=== PATIENT | female | born 1965 | race Caucasian/White ===

== ENCOUNTER 2018-06-02 12:59 | Inpatient (IN) ==
[2018-06-02] MEDS ORDERED: NS 1,000 ML IV ONE ×3 (13:38→17:51)
[2018-06-02 14:20] LABS: BASO# 0.01 X1000 (0.0-0.2); BASO% 0.1 % (0.0-0.8); HEMOGLOBIN 17.4 g/dL (12.0-16.0); IMM GRAN# 0.15 X1000 (0.0-0.04); IMM GRAN% 0.8 % (0.0-0.5); LYMPH% 10.9 % (20.5-51.1); MCH 29.5 PG (27-31); MCHC 34.1 g/dL (33-37); MCV 86.6 FL (81-99); MONO# 1.85 X1000 (0.11-0.59); MONO% 9.6 % (1.7-9.3); MPV 9.8 FL (7.4-10.4); NEUT# 15.23 X1000 (1.4-6.5); NEUT% 78.6 % (42.2-75.2); PLT 501 X1000 (130-400); RBC 5.89 XMIL (4.2-5.4); RDW 14.6 % (11.5-14.5); WBC 19.34 X1000 (4.8-10.8)
[2018-06-02] MEDS ORDERED: ZOFRAN IV ONE (14:51)
[2018-06-02 14:55] LABS: ALB/GLOB RATIO 1.6; ALBUMIN 5.5 g/dL (3.5-5.0); CALCIUM 10.6 mg/dL (8.8-10.2); CREATININE 2.7 mg/dL (0.5-0.9); POTASSIUM 3.3 mmol/L (3.5-5.1); TOTAL BILIRUBIN 0.48 mg/dL (0.20-1.00); TOTAL PROTEIN 8.9 g/dL (6.3-8.3)
[2018-06-02] MEDS ORDERED: ROCEPHIN 1 GM in NS 50 ML IV ONE (15:10)
[2018-06-02 15:15] LABS: CK INDEX 1.6 (0.0-2.5); CK-MB 3.28 ng/mL (0.0-5.0)
[2018-06-02 15:30] LABS: URINE SOURCE CLEAN CATCH
[2018-06-02 15:40] LABS: INR 0.89; PROTIME 12.7 Seconds (11.0-16.0)
--- NOTE | 2018-06-02 15:40 | EKG Report ---
Test Performed on : 06/02/2018 1:23:37 PM Test Reason : ED. No order in [place] Blood Pressure : / mmHG Vent. Rate : 100 BPM Atrial Rate : 100 BPM P-R Int : 136 ms QRS Dur : 120 ms QT Int : 388 ms P-R-T Axes : 080 063 004 degrees QTc Int : 500 ms Sinus rhythm. with frequent premature ventricular complexes. in a pattern of bigeminy. Inferior infarct , age undetermined Anteroseptal infarct , age undetermined ST & T wave abnormality, consider lateral ischemia Abnormal ECG No previous ECGs available Unconfirmed Result
[2018-06-02 15:41] LABS: PTT 33.7 Seconds (22.3-41.8)
[2018-06-02] MEDS ORDERED: LEVAQUIN 500 MG/D5W 500 MG/100 ML IVPB IV ONE (15:42)
[2018-06-02 15:44] LABS: BILIRUBIN URINE MODERATE (NEGATIVE); BLOOD URINE MODERATE (NEGATIVE); CLARITY HAZY (CLEAR); COLOR YELLOW; GLUCOSE URINE NEGATIVE (NEGATIVE); KETONE URINE 15 mg/dL (NEGATIVE); LEUKOCYTES URINE TRACE (NEGATIVE); NITRITE URINE POSITIVE (NEGATIVE); PROTEIN URINE >=300 mg/dL (NEGATIVE); SP GRAVITY URINE >= 1.030; UROBILINOGEN URINE 0.2 EU/dL (0.2-1.0)
[2018-06-02 15:46] LABS: URINE WBC 20-40 /HPF (<10)
[2018-06-02 15:47] LABS: URINE BACTERIA 2+ /HFP; URINE EPITHELIAL CELLS >10 /HPF (<10)
[2018-06-02 15:48] LABS: URINE CAST NONE SEEN /LPF; URINE CRYSTAL CA OXALATE PRESENT /HPF; URINE YEAST NONE SEEN /HPF
--- NOTE | 2018-06-02 15:53 | Diag Imaging Result Doc PS360 ---
EXAM: CT ABDOMEN/PELVIS W/O CONTRAST 06/02/2018 HISTORY: ABDOMINAL PAIN TECHNIQUE: This exam was performed using automated exposure control, adjustment of mA or kV according to patient size, and/or use of iterative reconstruction technique. COMMENT: There is no evidence of acute disease in the visualized portion of the chest. There are granulomata in the spleen. There is no evidence of nephrolithiasis or cholelithiasis. There are some granulomata in the liver. There is no evidence of bowel obstruction. There is no evidence of appendicitis. There is no free fluid. The urinary bladder is not distended. There is no evidence of acute bony abnormality. IMPRESSION: No evidence of stones or obstruction. Electronically signed by Vic Olson 06/02/2018 3:51 PM
--- NOTE | 2018-06-02 17:41 | PROVIDER DOCUMENTATION ---
This chart was entered by Judie Marquez Scribe, acting as scribe for Birgit Orantes MD. HPI-Abdominal Pain/GI Problem - General Chief Complaint: N/V/D Stated Complaint: V/D Time Seen by Provider: 06/02/18 13:12 Source: patient, family () Allergies/Adverse Reactions: Patient Allergies Allergy/AdvReac Type Severity Reaction Status Date / Time aspirin Allergy Severe ANAPHYLAXIS Verified 01/30/13 09:38 cephalexin [Cephalexin] Allergy Severe ANAPHYLAXIS Verified 01/30/13 09:38 erythromycin base Allergy Severe ANAPHYLAXIS Verified 01/30/13 09:38 [Erythromycin Base] Penicillins Allergy Severe ANAPHYLAXIS Verified 01/30/13 09:38 Sulfa (Sulfonamide Allergy Severe ANAPHYLAXIS Verified 01/30/13 09:38 Antibiotics) trihexyphenidyl HCl * Allergy Severe ANAPHYLAXIS Verified 01/30/13 09:38 [From Artane] acetaminophen Allergy Unknown NAUSEA/VOMI Verified 01/30/13 09:38 [From Lorcet 10/650] TING codeine Allergy Unknown HIVES Verified 01/30/13 09:38 hydrocodone bitartrate * Allergy Unknown NAUSEA/VOMI Verified 01/30/13 09:38 [From Lorcet 10/650] TING morphine Allergy Unknown NAUSEA/VOMI Verified 01/30/13 09:38 TING Home Medications: Home Medication List Medication Instructions Recorded Confirmed Last Taken Type Abobotulinumtoxina [Dysport] 800 unit IM DIRECTED 01/30/13 06/02/18 01/16/13 History Calcium Carbonate [Calcium] 1,200 mg PO DAILY 01/30/13 06/02/18 01/30/13 07:00 History Clonazepam [Klonopin] 1 mg PO QHS 01/30/13 06/02/18 01/30/13 07:00 History Fluoxetine [Prozac] 20 mg PO DAILY 01/30/13 06/02/18 01/30/13 07:00 History Metoclopramide [Reglan] 10 mg PO 4XDAY 01/30/13 01/30/13 01/30/13 07:00 History Multivitamin [Multivitamins] 1 each PO DAILY 01/30/13 06/02/18 01/30/13 07:00 History Pantoprazole [Protonix] 40 mg PO DAILY 01/30/13 06/02/18 01/30/13 07:00 History Tramadol [Ultram] 50 mg PO 5XDAY 01/30/13 01/30/13 01/30/13 07:00 History Mometasone Furoate 220 Mcg INH 1 puff INH RTBID 06/02/18 06/02/18 Unknown History [Asmanex 220 Microgm Inhaler] Montelukast Sodium [Singulair] 10 mg PO DAILY 06/02/18 06/02/18 Unknown History - History of Present Illness-ABD Nature of Presenting Problems: dr argueta deferred care to dr orantes [id number] presents to the ed with c/o n/v/d onset yesterday at 0600am. pt is dehydrated and hands and feet are cramping. pt looks to not feel well and sts has decreased urination and decreased appetite Abdominal Pain Onset Location: reports: generalized abdomen Pain Radiation: reports: no radiation Quality of Pain: reports: cramping Severity in ED: reports: moderate Onset/Duration: reports: other (yesterday at 0600am) Timing: reports: still present, intermittent Activities at Onset: reports: light activity Exposure to sick contacts?: No Modifying Factors: worse with: eating, movement Associated Symptoms: reports: diarrhea, fatigue, malaise, muscle aches, nausea, vomiting, weakness. denies: back/neck pain, chest pain, dizziness, fever/chills, shortness of breath Last BM: this afternoon Dark Stools Present?: reports: none noticed Rectal Bleeding: reports: none # of Diarrhea Episodes: 9 Rectal Pain: reports: none # of Vomiting Episodes: 12 Emesis Description: reports: other (yellow and clear) Bruising or Bleeding Gums?: No Similar Symptoms Previously?: No Recently seen or treated by another doctor?: No Review of Systems - Adult - REVIEW OF SYSTEMS - ADULT Constitutional: reports: see HPI, fatique. denies: chills, fever Eyes: reports: no symptoms reported Ears, Nose, Mouth & Throat: reports: no symptoms reported Cardiovascular: denies: chest pain, palpitations, syncope Respiratory: reports: see HPI, wheezing. denies: shortness of breath Gastrointestinal: reports: see HPI, abdominal pain, diarrhea, nausea, poor appetite, vomiting Genitourinary: reports: see HPI, urinary retention. denies: frequency, h ematuria Musculoskeletal: reports: see HPI, muscle aches (with cramping in hands and feet), muscle weakness. denies: back pain, neck pain Integumentary: reports: no symptoms reported Neurological: reports: see HPI. denies: dizziness/vertigo, headache/migraines, syncope, tremors Psychiatric: reports: no symptoms reported Endocrine: reports: no symptoms reported Hematologic/Lymphatic: reports: no symptoms reported Allergic/Immunologic: reports: no symptoms reported All Other Systems: Reviewed and Negative Past History - Adult - PAST MEDICAL HISTORY-ADULT Review of Records: reports: Old Records Reviewed, Nursing Assessment Review, Medications Reviewed, Social history reviewed & non-contributory. Major Childhood Illnesses: reports: denies history Cardiovascular: reports: denies history Respiratory: reports: asthma Gastrointestinal: reports: denies history Obstetrical/Gynecological: reports: denies history Genitourinary: reports: denies history Musculoskeletal: reports: denies history Hand Dominance: Right Handed Neurological: reports: denies history Psychiatric: reports: denies history Endocrine/Immune: reports: denies history Other Conditions: reports: denies history - PRIOR SURGERIES/PROCEDURES Surgical/Procedure History: reports: none - IMMUNIZATION STATUS Childhood Immunizations: See Nurse Assessment Flu Vaccine: See Nurse Assessment - FAMILY HISTORY Family History: reviewed, not pertinent - SOCIAL HISTORY Smoking: cigarettes, less than 1 pack/day Provider spent 3-5 mins advising pt. on dangers of tobacco.: Discussed manners to quit use, and f/u contacts for add'l counseling. Substance Use: denies Alcohol Use Frequency: never Living Situation: family Physical Exam-General - PHYSICAL EXAM-ADULT Initial Vital Signs Reviewed: Yes (BP 152/120-HR 114) - CONSTITUTIONAL General Appearance: alert, mild distress, thin. negative: appears well - EYES Eyes: PERRL/EOMI, pale conjunctivae - HEAD, EARS, NOSE, MOUTH & THROAT HENMT: other (no teeth). negative: moist mucous membranes (dry) - NECK Neck: non-tender, full range of motion, normal inspection - RESPIRATORY Respiratory: chest non-tender, wheezing - CARDIOVASCULAR Cardiovascular: normal peripheral pulses, tachycardia (114) - GASTROINTESTINAL (ABDOMEN) Abdominal Exam: soft, abnormal bowel sounds, guarding, tenderness. negative: distended, rigid, rebound - LYMPHATIC Lymphatic: no adenopathy - MUSCULOSKELETAL Back Exam: normal inspection, no CVA tenderness, no vertebral tenderness Extremity: normal range of motion, non-tender, no pedal edema, no calf tendernes s, normal capillary refill, pelvis stable, other (hands and feet are drawn secondary to dehydration) - SKIN Integumentary: warm/dry, pallor - NEUROLOGIC Neurologic: grossly normal - PSYCHIATRIC Psych/Mental Status: normal mood/affect, normal thought content, normal thought process, oriented x 3 Progress - PLAN OF CARE/RESULTS Progress/Plan/Lab Results: Vital Signs - 8 hr 06/02/18 13:04 Temperature 96.9 F L Pulse Rate 114 H Respiratory Rate 18 Blood Pressure 152/120 O2 Sat by Pulse Oximetry 94 L Result Diagrams: 06/02/18 13:16 06/02/18 13:16 - REASSESSMENT Reassessment #1 Time Reassessed: 13:54 Status: improving Reassessment #2 Time Reassessed: 15:10 Status: unchanged - EKG 1 Time of EKG reading by physician:: 13:23 EKG Read and Signed by:: Birgit Orantes EKG Interpretation (*Must complete 3 of following elements*): Abnormal Rate: 100 Rhythm: sinus rhythm w/ frequent pvc in a pattern of bigeminy [place]: normal QRS: normal [place] Interval: normal Comments: inferior/anteroseptal infarct, age undetermined - CT/MRI 1 CT Study: Abdomen, Pelvis Impression: See EMR Report (EXAM: CT ABDOMEN/PELVIS W/O CONTRAST 06/02/2018 HISTORY: ABDOMINAL PAIN TECHNIQUE: This exam was performed using automated exposure control, adjustment of mA or kV according to patient size, and/or use of iterative reconstruction technique. COMMENT: There is no evidence of acute disease in the visualized portion of the chest. There are granulomata in the spleen. There is no evidence of nephrolithiasis or cholelithiasis. There are some granulomata in the liver. There is no evidence of bowel obstruction. There is no evidence of appendicitis. There is no free fluid. The urinary bladder is not distended. There is no evidence of acute bony abnormality. IMPRESSION: No evidence of stones or obstruction. Electronically signed by Vic Olson 06/02/2018 3:51 PM 06/02/18 1231 Interpreting Physician: Vic Olson MD Dictated Date/Time: 06/02/18 9271 cc: Birgit Orantes MD; Nay Argueta MD) - CONSULTS/PCP/HOSPITALIST Notification #1 *Consult/PCP/Hospitalist*: dr nicholson Time Discussed: 16:03 (dr argueta so dr nicholson is promotional marketing agent) Consult Disposition: Admit Departure - Departure Date of Disposition Decision: 06/02/18 Time of Disposition Decision: 16:14 DIAGNOSIS: COPD exacerbation, Dehydration Disposition: ADMITTED INPATIENT 09 Certified Medical Emergency: Emergent Condition: Stable Referrals and Follow-Ups: Nay Argueta MD [Primary Care Provider] - - Critical Care Note This patient required my direct & personal management of CC.: Yes Total Time (mins): 38 Critical Care Statement: This patient required my direct personal management to treat or rule out processes, the absence of which, could potentiallly result in sudden, clinically significant life or limb threatening deterioration. Attestation - Physician/ MARBIN Attestation Patient care was provided by Advanced Practice Provider:: No The physician spent face to face time with patient:: Yes Advanced Practice Provider documentation review:: Supervising physician onsite and consulted in the evaluation and care of this patient. The physician did have a face to face encounter with the patient. This chart was documented by the indicated scribe, (Judie Marquez Scribe) and accurately reflects the services I performed and decisions made by me, Birgit Orantes MD, as attested by the provider's signature.
[2018-06-02] MEDS ORDERED: TOBRAMYCIN 100 MG in NS 100 ML IV ONE (17:51)
[2018-06-02] MEDS ORDERED: SODIUM CHLORIDE 0.9% INJ PRN (17:51)
[2018-06-02] MEDS ORDERED: TYLENOL PO PRN (17:51)
[2018-06-02] MEDS: REGLAN IV SCH ×2 (18:09→23:59)
[2018-06-02] MEDS: LOVENOX SUBQ SCH (18:09)
[2018-06-02] MEDS: PHENERGAN IV PRN (20:03)
[2018-06-02] MEDS: KLONOPIN PO SCH (20:03)
[2018-06-02] MEDS: ULTRAM PO PRN (20:03)
[2018-06-03] MEDS: ULTRAM PO PRN ×4 (05:01→22:43)
[2018-06-03] MEDS: REGLAN IV SCH ×5 (05:01→23:24)
[2018-06-03] MEDS: PHENERGAN IV PRN ×4 (05:01→20:38)
[2018-06-03 07:14] LABS: CALCIUM 7.4 mg/dL (8.8-10.2); CREATININE 1.3 mg/dL (0.5-0.9); POTASSIUM 3.6 mmol/L (3.5-5.1)
[2018-06-03] MEDS: PROTONIX PO SCH (08:08)
[2018-06-03] MEDS: KLONOPIN PO SCH ×2 (08:08→20:39)
[2018-06-03] MEDS: PROZAC PO SCH (08:08)
--- NOTE | 2018-06-03 09:36 | PROGRESS NOTE ---
DATE: 06/03/2018 SUBJECTIVE: Ms. Maynard was admitted to [facility] with acute pyelonephritis with severe sepsis complicated by acute renal failure. Clinically, she feels much better this morning. She is no longer having any nausea or vomiting. She continues with persistent left flank pain. Urine and blood cultures are pending. She still has a leukocytosis of 19,000. Her creatinine has dropped from 2.7 to 1.3. OBJECTIVE: Vital Signs: Temperature 98.0 degrees, pulse 67, respirations 16, BP 130/77. CV: Regular rate and rhythm. Lungs: Clear. Abdomen: Soft, nontender, with active bowel sounds. No hepatosplenomegaly. No abdominal bruits. ASSESSMENT AND PLAN: Acute pyelonephritis with severe sepsis. She has had tachycardia, tachypnea. Leukocytosis greater than 15,000, as well as an elevated lactate level. We will continue normal saline at 125 mL/hour and intravenous antibiotics, including Levaquin and tobramycin pending blood and urine cultures. We will advance her to a gastrointestinal soft diet. We will recheck a complete blood count and a basic metabolic panel in the morning. cc: Blaise Argueta MD
[2018-06-03] MEDS: NS 1,000 ML IV SCH ×2 (10:11→17:03)
[2018-06-03] MEDS: LOVENOX SUBQ SCH (16:51)
[2018-06-03] MEDS ORDERED: LEVAQUIN 250 MG/D5W 250 MG/50 ML IVPB IV SCH (17:15)
[2018-06-04] MEDS: PHENERGAN IV PRN ×2 (00:47→09:54)
[2018-06-04] MEDS: REGLAN IV SCH (05:21)
[2018-06-04] MEDS: ULTRAM PO PRN ×2 (05:21→11:04)
[2018-06-04 06:52] LABS: BASO# 0.04 X1000 (0.0-0.2); BASO% 0.4 % (0.0-0.8); EOS# 0.23 X1000 (0.0-0.7); EOS% 2.2 % (0.0-10.0); HEMATOCRIT 37.8 % (37.0-47.0); HEMOGLOBIN 12.7 g/dL (12.0-16.0); IMM GRAN# 0.05 X1000 (0.0-0.04); IMM GRAN% 0.5 % (0.0-0.5); LYMPH# 2.75 X1000 (1.2-3.4); LYMPH% 25.8 % (20.5-51.1); MCH 30.4 PG (27-31); MCHC 33.6 g/dL (33-37); MCV 90.4 FL (81-99); MONO# 1.28 X1000 (0.11-0.59); MPV 9.3 FL (7.4-10.4); NEUT# 6.32 X1000 (1.4-6.5); NEUT% 59.1 % (42.2-75.2); PLT 267 X1000 (130-400); RBC 4.18 XMIL (4.2-5.4); RDW 14.2 % (11.5-14.5); WBC 10.67 X1000 (4.8-10.8)
[2018-06-04 07:53] VITALS: BP 136/80
[2018-06-04 08:06] LABS: AGAP 12; BUN 12 mg/dL (8-22); CHLORIDE 106 mmol/L (98-107); COSMO 281; CREATININE 0.9 mg/dL (0.5-0.9); ESTIMATED GFR > 60; GLUCOSE 99 mg/dL (70-104); POTASSIUM 3.1 mmol/L (3.5-5.1); SODIUM 141 mmol/L (136-145); TCO2 23 mmol/L (25-35)
[2018-06-04] MEDS ORDERED: KLOR-CON PO SCH (09:00)
[2018-06-04] MEDS: PROZAC PO SCH (09:47)
[2018-06-04] MEDS: PROTONIX PO SCH (09:47)
[2018-06-04] MEDS: KLONOPIN PO SCH (09:48)
[2018-06-04] MEDS ORDERED: KLOR-CON PO ONE (10:21)
[2018-06-04] MEDS ORDERED: LEVAQUIN PO SCH (10:30)
--- NOTE | 2018-07-07 17:07 | HISTORY AND PHYSICAL ---
HISTORY OF PRESENT ILLNESS: Ms. Bettie Maynard is a 52-year-old lady with a history of multiple medical problems including COPD, tobacco abuse, gastroesophageal reflux disease, allergic rhinitis, depression and dystonia who is well known to me. She presented to the ER with complaint of dysuria, increased urinary frequency, low back pain and intractable nausea and vomiting. She had fevers as high as 101 at home. PAST MEDICAL HISTORY: As above. PAST SURGICAL HISTORY: Hysterectomy, left knee arthroscopy, bilateral tubal ligation. ALLERGIES: Codeine, erythromycin, penicillin, sulfa. FAMILY HISTORY: Her father of complications of adenocarcinoma of unknown primary. SOCIAL HISTORY: She continues to smoke at least 1 pack of cigarettes per day. She does not consume alcoholic beverages. She is and lives with her spouse. MEDICATIONS: Klonopin 1 mg at night, Prozac 40 mg daily, Reglan 10 mg q.6 hours, Asmanex 220 mcg 1 puff b.i.d., Singulair 10 mg daily, multivitamin 1 p.o. daily, pantoprazole 40 mg daily, KCl 10 mEq b.i.d., tramadol 50 mg p.o. q.6 hours p.r.n. pain. REVIEW OF SYSTEMS: She denies any recent weight gain or weight loss.HEENT: She wears glasses. CV: No chest pain, palpitations, or anginal equivalents. Pulmonary: No shortness of breath, PND, orthopnea. GI: See HPI. Endocrine: No polyuria, no polydipsia. Skin: No easy bruisability. : See HPI. Neuro: No migraines or seizures. Psychiatric: History of depression. PHYSICAL EXAM: This is an acutely ill-appearing 52-year-old lady in no apparent distress. Temperature 96.9 degrees, pulse 114, respiratory rate 18, BP 135/104. HEENT: Fundi with arteriolar wall thickening. Pupils equal, round, reactive to light. Extraocular eye movements intact. TMs without bullae. NECK: Supple. No masses, JVD or bruits. CV: Tachycardic, regular S1, S2. LUNGS: Distant breath sounds with increased period of expiration. ABDOMEN: Soft, nontender with active bowel sounds. EXTREMITIES: Without edema. BACK: There is marked left CVA tenderness. NEURO: Nonfocal. LABS: Various laboratory studies were obtained. A CBC demonstrated a white count of 19.3, hemoglobin 17.4, hematocrit 51, platelet count 501,000 and a left shift. Electrolytes demonstrated sodium 136, potassium 3.3, chloride 86, BUN 22, creatinine 2.7, glucose 195. ASSESSMENT AND PLAN: 1. Acute pyelonephritis with sepsis. Her initial urine demonstrated moderate blood, positive nitrates, and moderate bilirubin. We will rehydrate the patient with normal saline and began broad-spectrum antibiotics including Levaquin and tobramycin dosed for her renal dysfunction pending urine and blood cultures. I believe that she has sepsis syndrome as she has an abnormal urinalysis in association with tachycardia, leukocytosis with a left shift and an elevated lactic acid. 2. Acute renal failure. I suspect that the acute renal failure is due to the underlying pyelonephritis with sepsis. We will aggressively rehydrate her, treat the underlying infection and will follow her renal function. 3. Volume depletion secondary to intractable nausea and vomiting. I will treat her nausea on a p.r.n. basis with Zofran and aggressively rehydrated her. 4. Hypokalemia. We will replete her potassium. 5. Given her comorbid conditions and clinical presentation, I believe that admission to the hospital is reasonable. I anticipate that she will be in the hospital for at least 2 midnights and I will therefore place her in inpatient status. We will begin Lovenox 30 mg subcu daily for DVT prophylaxis. cc: Blaise Argueta MD
--- NOTE | 2018-07-07 21:20 | DISCHARGE SUMMARY ---
ADMISSION DATE: 06/02/2018 DISCHARGE DATE: 06/04/2018 DISCHARGE DIAGNOSES: 1. Acute pyelonephritis with sepsis syndrome. 2. Acute renal failure. 3. Volume depletion secondary to gastrointestinal losses. 4. Chronic obstructive pulmonary disease. 5. Gastroesophageal reflux disease. 6. Dystonia. DISCHARGE INSTRUCTIONS: 1. Return to clinic in 1 week to see me, Dr. Yung Argueta. 2. Activity as tolerated. 3. Regular diet. 4. Medications. Levaquin 500 mg daily for 12 days, Ultram 50 mg q.6 hours p.r.n. pain, KCl 10 mEq b.i.d., fluoxetine 40 mg daily, calcium carbonate 1200 mg daily, multivitamin daily, clonazepam 1 mg at night, pantoprazole 40 mg daily, Reglan 10 mg t.i.d., Singulair 10 mg daily, Asmanex 220 one puff b.i.d. DISCHARGE PHYSICAL EXAMINATION: This is a well-developed, well-nourished 52-year-old lady in no apparent distress. She is afebrile. Vital signs are stable. HEENT: Fundi with sharp disks. Arteriolar wall thickening. Pupils equal, round, reactive to light. Extraocular eye movements intact. TMs without bullae. Neck: Supple. No masses, JVD or bruits. CV: Regular rate and rhythm. Lungs: Clear. Abdomen: Soft, nontender with active bowel sounds. No hepatosplenomegaly. No abdominal bruits. Extremities: Without edema. Skin: No palpable purpura. Neuro: Nonfocal. Ms. Maynard was admitted to [facility] with acute pyelonephritis with sepsis syndrome complicated by acute renal failure. The patient was aggressively rehydrated with normal saline and was started on broad-spectrum antibiotics including Levaquin and tobramycin pending urine and blood cultures. Blood and urine cultures demonstrated no pathologic growth. With aggressive volume resuscitation and broad-spectrum antibiotics though she made good clinical improvement. The dysuria and increased urinary frequency resolved, her nausea and vomiting resolved. She was advanced to a clear liquid diet and was tolerating a bland diet at the time of discharge. With aggressive hydration her renal function returned to baseline. Her creatinine was 2.7 on admission. It was 0.9 at discharge. She will complete an additional 12 day course of Levaquin 500 mg daily and we will recheck a urine culture at the conclusion of antibiotic therapy. Having reached maximum hospital benefit the patient was discharged in stable condition. cc: Blaise Argueta MD
== END 2018-06-04 11:23 | disposition home or self-care (01) | DRG 872 ==
LOC: ED 12:59 → 4N 17:47
PROVIDERS: ADMIT Internal Medicine; ATTEND Internal Medicine
CPT/HCPCS: 74176; 80048; 80053; 81001; 82150; 82550; 82553; 83605; 83690; 84484; 85025; 85610; 85730; 87040; 87088; 93005; 96361; 96365; 96375; 99285; A9270; J1650; J1956; J2405; J2550; J2765; J3260; J7030